=== PATIENT | female | born 1970 | race Caucasian/White ===

== ENCOUNTER 2017-03-19 23:30 | Emergency (ER) | payer OTHER ==
[~2017-03-19] VITALS: Ht 152.4 cm; Wt 69.0 kg
[~2017-03-19 23:30] MED LIST: ABILIFY10 MG PO; BACTRIM DS TAB1 EACH PO; CELEXA20 MG PO; DICLOFENAC SODI75 MG PO; FLAGYL500 MG PO; GABAPENTIN300 MG; GABAPENTIN800 MG PO; GUAIFENESIN-CO118 ML PO; IBUPROFEN600 MG PO; KEFLEX500 MG PO; LAMICTAL25 MG PO; LEVAQUIN500 MG PO; MELOXICAM15 MG PO; NORCO 5-325 TA1 EACH PO; PERCOCET 5-3251 EACH PO; PREDNISONE20 MG PO; PROVENTIL HFA6.7 GM INH; RISPERDAL2 MG; RISPERDAL3 MG PO; ULTRAM50 MG PO; ZITHROMAX250 MG PO; ZOFRAN ODT4 MG SL
== END 2017-03-20 00:09 | disposition home or self-care (01) ==
LOC: ED 23:30
DX: S61.217A Laceration without foreign body of left little finger without damage to nail, initial encounter (principal); F31.9 Bipolar disorder, unspecified; F17.200 Nicotine dependence, unspecified, uncomplicated; Z90.49 Acquired absence of other specified parts of digestive tract; Z98.51 Tubal ligation status; Z88.8 Allergy status to other drugs, medicaments and biological substances; Z91.048 Other nonmedicinal substance allergy status; W26.0XXA Contact with knife, initial encounter
CPT/HCPCS: 99282

== ENCOUNTER 2017-04-26 11:41 | Emergency (ER) | payer OTHER ==
[~2017-04-26] VITALS: Ht 152.4 cm; Wt 54.4 kg
[2017-04-26] MEDS ORDERED: ADVIL200 M1 PO (11:52)
[2017-04-26] MEDS ORDERED: KETOROLAC TROME10 MG PO (12:11)
[2017-04-26] MEDS ORDERED: BACTRIM DS TAB1 EACH PO (12:11)
== END 2017-04-26 12:15 | disposition home or self-care (01) ==
LOC: ED 11:41
DX: L02.413 Cutaneous abscess of right upper limb (principal); F31.9 Bipolar disorder, unspecified; F17.200 Nicotine dependence, unspecified, uncomplicated; Z90.49 Acquired absence of other specified parts of digestive tract; Z98.51 Tubal ligation status; Z88.8 Allergy status to other drugs, medicaments and biological substances
CPT/HCPCS: 99283

== ENCOUNTER 2017-08-22 16:06 | Emergency (ER) | payer OTHER ==
[~2017-08-22] VITALS: Ht 152.4 cm; Wt 54.4 kg
[~2017-08-22 16:06] MED LIST changes: +ADVIL200 M1 PO; +KETOROLAC TROME10 MG PO
[2017-08-22] MEDS ORDERED: NORCO 5-325 TA1 EACH PO (16:59)
== END 2017-08-22 17:08 | disposition home or self-care (01) ==
LOC: ED 16:06
DX: S60.221A Contusion of right hand, initial encounter (principal); F31.9 Bipolar disorder, unspecified; F17.200 Nicotine dependence, unspecified, uncomplicated; Z88.8 Allergy status to other drugs, medicaments and biological substances; W18.30XA Fall on same level, unspecified, initial encounter
CPT/HCPCS: 73130; 99283

== ENCOUNTER 2018-12-15 13:35 | Emergency (ER) | payer OTHER ==
[~2018-12-15] VITALS: Ht 152.4 cm; Wt 52.6 kg
[~2018-12-15 13:35] MED LIST changes: +ZYRTEC10 MG PO
--- OUTSIDE RECORDS SUMMARY | 2018-12-15 13:38 | XMS ---
PreManage Notification: ESHA NDIAYE Security Environmental Programs Manager Events 2 event(s) in the past 18 months Most recent security events: Elopement at [facility] 04/24/2018 09:24 - Other Details: PATIENT LEFT AMA BEFORE EVALUATION/TREATMENT Elopement at [facility] 02/06/2018 11:57 - Patient eloped before treatment completed. Details: LWBS CRITERIA MET - Group Notification - [facility] - Has Care Guidelines - [facility] - 2 Visits in 30 Days CARE PROVIDERS VALENTIN CURRIE Hospitalist 02/05/2018-Current PHONE: Unknown Arben has no Care Guidelines for this patient. Care History Medical/Surgical 04/24/2018 [facility] - PATIENT CANCELLED APT TO ESTABLISH WITH DR CURRIE ON 05/01/18. - PATIENT DOES NOT HAVE A PCP AND SHOULD BE REFERRED TO WALK IN CLINIC WHEN SEEN IN THE ED FOR NON EMERGENT MEDICAL NEEDS. - Patient is currently established with [facility]. If patient is seen in the ED during business hours. Please contact CHWs at [facility]. Care Recommendation: This patient has had 5 or more Emergency Department visits in the last 12 months.\T\nbsp; Patient requires education on the scope and purpose of the ED as an acute care provider not a Primary Care Provider and should not be utilized for chronic conditions.\T\nbsp; These are guidelines and the provider should exercise clinical judgment when providing care. E.Caio. VISIT COUNT (12 MO.) 4 ZENON Wilson TOTAL 4 NOTE: Visits indicate total known visits. ED/UCC VISIT TRACKING (12 MO.) 12/15/2018 13:35 [facility] [place] TYPE: Emergency COMPLAINT: - LEFT HAND SWELLING/NON INJURY 12/13/2018 10:44 [facility] [place] TYPE: Emergency COMPLAINT: - BEE STING SWELLING LEFT HAND/VOMITING 04/24/2018 04:51 [facility] [place] TYPE: Emergency COMPLAINT: - ABD PAIN/AMA HOME DIAGNOSES: - Hemorrhage of anus and rectum - Acquired absence of other specified parts of digestive tract - Allergy status to other drugs, medicaments and biological substances status - Lower abdominal pain, unspecified - Bipolar disorder, unspecified 02/04/2018 02:01 [facility] [place] TYPE: Emergency COMPLAINT: - ABCESS ON R SHOULDER DIAGNOSES: - Procedure and treatment not carried out due to patient leaving prior to being seen by health care provider INPATIENT VISIT TRACKING (12 MO.) No inpatient visits to display in this time frame [id number]
== END 2018-12-15 15:15 | disposition left against medical advice (07) ==
LOC: ED 13:35
DX: M79.89 Other specified soft tissue disorders (principal); Z53.21 Procedure and treatment not carried out due to patient leaving prior to being seen by health care provider

== ENCOUNTER 2019-09-19 05:19 | Emergency (ER) | payer OTHER ==
[~2019-09-19] VITALS: Ht 152.4 cm; Wt 52.2 kg
[2019-09-19] MEDS ORDERED: GOLYTELY SOLU4000 ML PO (07:09)
== END 2019-09-19 07:22 | disposition home or self-care (01) ==
LOC: ED 05:19
DX: K59.00 Constipation, unspecified (principal); F15.10 Other stimulant abuse, uncomplicated; F31.9 Bipolar disorder, unspecified; F17.200 Nicotine dependence, unspecified, uncomplicated; Z88.8 Allergy status to other drugs, medicaments and biological substances
CPT/HCPCS: 74018; 80053; 81001; 83690; 85025; 99284-25

== ENCOUNTER 2020-04-16 19:39 | Emergency (ER) | payer OTHER ==
[~2020-04-16] VITALS: Ht 152.4 cm; Wt 52.2 kg
[~2020-04-16 19:39] MED LIST changes: +GOLYTELY SOLU4000 ML PO
--- OUTSIDE RECORDS SUMMARY | 2020-04-16 19:42 | XMS ---
PreManage Notification: ESHA NDIAYE Security Customer Experience Strategist Events 1 event(s) in the past 18 months Most recent security events: Elopement at [facility] 12/15/2018 13:35 - Other Details: PATIENT LWBS. CRITERIA MET - Group Notification - [facility] - Has Care Guidelines CARE PROVIDERS VALENTIN CURRIE Internal Medicine 02/05/2018-Current PHONE: Unknown Arben has no Care Guidelines for this patient. Care History Medical/Surgical 12/18/2018 [facility] - EOIPA CASE MANAGEMENT REFERRAL MADE ON 12/18/18. 04/24/2018 [facility] - PATIENT CANCELLED APT TO ESTABLISH WITH DR CURRIE ON 05/01/18. - PATIENT DOES NOT HAVE A PCP AND SHOULD BE REFERRED TO WALK IN CLINIC WHEN SEEN IN THE ED FOR NON EMERGENT MEDICAL NEEDS. - Patient is currently established with [facility]. If patient is seen in the ED during business hours. Please contact CHWs at [facility]. Care Recommendation: This patient has had 5 or more Emergency Department visits in the last 12 months.\T\nbsp; Patient requires education on the scope and purpose of the ED as an acute care provider not a Primary Care Provider and should not be utilized for chronic conditions.\T\nbsp; These are guidelines and the provider should exercise clinical judgment when providing care. E.D. VISIT COUNT (12 MO.) 2 ZENON Wilson TOTAL 2 NOTE: Visits indicate total known visits. ED/UCC VISIT TRACKING (12 MO.) 04/16/2020 19:40 [facility] [place] TYPE: Emergency COMPLAINT: - BEE STING/ALLERGIC REACTION 09/19/2019 05:19 [facility] [place] TYPE: Emergency COMPLAINT: - CONSTIPATION DIAGNOSES: - Constipation, unspecified - Nicotine dependence, unspecified, uncomplicated - Bipolar disorder, unspecified - Allergy status to other drugs, medicaments and biological sub - Other stimulant abuse, uncomplicated INPATIENT VISIT TRACKING (12 MO.) No inpatient visits to display in this time frame [email or web address]
[2020-04-16] MEDS ORDERED: ULTRAM50 MG PO (20:17)
== END 2020-04-16 20:54 | disposition home or self-care (01) ==
LOC: ED 19:39
DX: T63.441A Toxic effect of venom of bees, accidental (unintentional), initial encounter (principal); F31.9 Bipolar disorder, unspecified; F17.200 Nicotine dependence, unspecified, uncomplicated; Z88.8 Allergy status to other drugs, medicaments and biological substances; Z91.041 Radiographic dye allergy status
CPT/HCPCS: 96372; 99282-25; J1200

== ENCOUNTER 2023-03-29 08:25 | Emergency (ER) | payer OTHER ==
[~2023-03-29] VITALS: Ht 152.4 cm; Wt 55.7 kg
[~2023-03-29 08:25] MED LIST changes: +ANUSOL-HC25 MG PR
--- OUTSIDE RECORDS SUMMARY | 2023-03-29 08:34 | XMS ---
PreManage Notification: ESHA NDIAYE Security Tunnel Inspector Events No recent Security Events currently on file CRITERIA MET - Group Notification CARE PROVIDERS HARI CURRIECOLM Internal Medicine 04/20/2020-Current PHONE: Unknown -, [place]- Dentist: Forming And Assembling Supervisor [facility] PHONE: [phone] JORI BALLESTEROS Physician Leather Stitcher [facility] PHONE: [phone] Arben has no Care Guidelines for this patient. E.D. VISIT COUNT (12 MO.) 2 [facility] Wilson [facility] NOTE: Visits indicate total known visits. ED/UCC VISIT TRACKING (12 MO.) 03/29/2023 08:27 [facility] [place] TYPE: Emergency COMPLAINT: - ABD PAIN, BIG BRUISE ON BACK BY KIDNEY 11/28/2022 09:15 [facility] [place] TYPE: Emergency COMPLAINT: - RECTAL BLEEDING DIAGNOSES: - Allergy status to other drugs, medicaments and biological substances - Hemorrhage of anus and rectum - Nicotine dependence, unspecified, uncomplicated - Other nonmedicinal substance allergy status - Radiographic dye allergy status 09/20/2022 09:59 [facility] [place] TYPE: Emergency DIAGNOSES: - Unspecified abdominal pain - ABD PAIN INPATIENT VISIT TRACKING (12 MO.) No inpatient visits to display in this time frame [email or web address]
[2023-03-29] MEDS ORDERED: REGLAN10 MG PO (09:25)
[2023-03-29 09:37] VITALS: BP 119/81
== END 2023-03-29 09:37 | disposition home or self-care (01) ==
LOC: ED 08:25
DX: K59.00 Constipation, unspecified (principal); F17.200 Nicotine dependence, unspecified, uncomplicated; Z91.041 Radiographic dye allergy status; Z88.8 Allergy status to other drugs, medicaments and biological substances; Z91.048 Other nonmedicinal substance allergy status
CPT/HCPCS: 74022; 99284-25

== ENCOUNTER 2023-06-25 09:20 | Emergency (ER) | payer OTHER ==
[~2023-06-25] VITALS: Ht 152.4 cm; Wt 55.3 kg
[~2023-06-25 09:20] MED LIST changes: +REGLAN10 MG PO
--- OUTSIDE RECORDS SUMMARY | 2023-06-25 09:32 | XMS ---
PreManage Notification: ESHA NDIAYE Security Layout Worker Events No recent Security Events currently on file CRITERIA MET - Group Notification CARE PROVIDERS HARI CURRIECOLM Internal Medicine 04/20/2020-Current PHONE: Unknown -, [place]- Dentist: Water And Gas Helper [facility] PHONE: [phone] JORI BALLESTEROS Physician Cataract Lens Generator [facility] PHONE: [phone] Arben has no Care Guidelines for this patient. E.D. VISIT COUNT (12 MO.) 3 [facility] Gibson [facility] NOTE: Visits indicate total known visits. ED/UCC VISIT TRACKING (12 MO.) 06/25/2023 09:20 [facility] [place] TYPE: Emergency COMPLAINT: - ABDOMINAL PAIN 03/29/2023 08:27 [facility] [place] TYPE: Emergency COMPLAINT: - ABD PAIN, BIG BRUISE ON BACK BY KIDNEY DIAGNOSES: - Allergy status to other drugs, medicaments and biological substances - Constipation, unspecified - Nicotine dependence, unspecified, uncomplicated - Other nonmedicinal substance allergy status - Radiographic dye allergy status - Unspecified abdominal pain 11/28/2022 09:15 [facility] [place] TYPE: Emergency COMPLAINT: - RECTAL BLEEDING DIAGNOSES: - Allergy status to other drugs, medicaments and biological substances - Hemorrhage of anus and rectum - Nicotine dependence, unspecified, uncomplicated - Other nonmedicinal substance allergy status - Radiographic dye allergy status 09/20/2022 09:59 [facility] [place] TYPE: Emergency DIAGNOSES: - Unspecified abdominal pain - ABD PAIN INPATIENT VISIT TRACKING (12 MO.) No inpatient visits to display in this time frame [id number]
[2023-06-25 10:00] VITALS: BP 144/70
== END 2023-06-25 10:00 | disposition left against medical advice (07) ==
LOC: ED 09:20
DX: R10.10 Upper abdominal pain, unspecified (principal); Z53.29 Procedure and treatment not carried out because of patient's decision for other reasons; F17.200 Nicotine dependence, unspecified, uncomplicated; Z88.8 Allergy status to other drugs, medicaments and biological substances; Z91.041 Radiographic dye allergy status; Z91.048 Other nonmedicinal substance allergy status
CPT/HCPCS: 36415; 80053; 83690; 84703; 85025; 99284

== ENCOUNTER 2023-06-29 07:45 | Day surgery (SDC) | payer OTHER ==
[2023-06-27 13:31] VITALS: BP 116/75
[~2023-06-29] VITALS: Ht 152.4 cm; Wt 56.8 kg
[2023-06-29 08:03] VITALS: BP 117/70
[2023-06-29 13:13] VITALS: BP 112/79
--- NOTE | 2023-06-29 13:21 | NUR ---
06/29/23 1321 Joelle Goncalves Jose D 0932- PT ARRIVES TO PACU, REACTIVE TO TACTILE STIMULUS. O2 AT 4L PER NC, LR INFUSING TO RH IV. ABD ROUND BUT SOFT. ALL MONITORS IN PLACE. PT IN SEMI ARIAS POSITION, INTERMITTENT SNORING. 0941- PT AWAKE AND PULLED O2 OFF. PT YELLING SHE NEEDS TO URINATE, PT VERY DROWSY. OFFERED A BED BENITEZ AND PT DECLINED. LET PT KNOW THAT SHE NEEDS TO WAKE UP MORE BEFORE GETTING OUT OF THE BED. PT SAYS "I'M AWAKE". KICKING OFF BLANKETS AND PULLING AT CORDS. 0945- PT CONTINUES TO ASK TO USE THE BATHROOM AND IF NOT, "I WILL PEE ALL OVER THE BED". BEDSIDE COMMODE BROUGHT OVER TO BED, THIS RN ASSISTED PT TO SIDE OF BED. PT DENIES DIZZINESS. PT STANDS BUT NOT VERY STEADY ON FEET, ASSIST TO COMMODE. 0948- PT ABLE TO GET SELF BACK INTO BED WITH STAND BY ASSISTANCE. PT HAVING FULL CONVERSATIONS WITH STAFF. 1000- VITAL SIGNS STABLE. PT WANTING TO GO HOME. ASSISTED PT TO SIDE OF BED, PT ABLE TO STAND ON OWN, DRESSING SELF. MOM CALLED FOR A RIDE HOME. 1010- PT SALINE LOCK REMOVED, TIP INTACT, DRESSING APPLIED. PT AMBULATED WITH STEADY GAIT TO WHEEL CHAIR. ALERT AND ORIENTED AT BASELINE. NO SIGNS OF DISTRESS. ALL BELONGINGS WITH PT, PT TAKEN OUT TO FAMILY CAR.
--- NOTE | 2023-06-30 06:08 | OR ---
[facility] [address] [place], [place] [address] Signed DATE OF OPERATION: 06/29/2023 SURGEON: Sam Valverde MD PREOPERATIVE DIAGNOSES: 1. Chronic abdominal pain. 2. Chronic nausea and bloating. 3. Chronic constipation. 4. Chronic intermittent rectal bleeding. 5. Diverticulosis. POSTOPERATIVE DIAGNOSES: 1. GE junction at 32 cm. 2. Small hiatal hernia (2-3 cm). PROCEDURE: Esophagogastroduodenoscopy with CLOtest and biopsies of the pyloric bulb. ESTIMATED BLOOD LOSS: None. INDICATIONS: Esha is a 52-year-old female, who I have known for a long time. She has a long history of alcohol use, opioids, marijuana, methamphetamines and cigarettes. Dr. Daly performed her laparoscopic converted to an open cholecystectomy with a liver biopsy in 2007. She had acalculous cholecystitis with alcohol-related hepatitis and moderate ascites. No cirrhosis. She has had many years of chronic abdominal pain, chronic nausea and bloating and chronic constipation with intermittent rectal bleeding. She told me nothing works including MiraLAX 3 times a day. She has been to quite a few different care providers over the years. Most recently, she went to the [facility] to see Morris Edmond, who is a nurse practitioner. She had the same complaints. She is single, lives in a duplex here in [place]. Her mom lives about 15 miles away. She has a couple of sons that live in the area. She has been to our emergency room multiple times including November and March of this year. She always has the same complaints. A CT scan in November showed a little diverticulosis and a T12 compression fracture of unknown longevity. People had brought up the idea of irritable bowel syndrome. In 2009, at the age of 39, she went for upper endoscopy. There were no varices and CLOtest was negative. She had a little gastropathy. Morris recommended she come to see me for consideration of upper and lower endoscopy. She has untreated bipolar disorder. She talks incessantly and is very difficult to break into the Electronically Signed By: SAM VALVERDE MD 06/30/23 0608 PATIENT NAME: ESHA NDIAYE OPERATIVE REPORT DATE OF : 66 REPORT #: [id number] PHYSICIAN: SAM VALVERDE MD PCP: NO PRIMARY CARE PHYSICIAN REPORT IS CONFIDENTIAL AND NOT TO BE RELEASED WITHOUT AUTHORIZATION [facility] [address] [place], [place] [address] Signed conversation. In the end, she told me she could not take a bowel prep, so she did not take the bowel prep and so she is here today for the upper endoscopy. In the office, I gave her pamphlets on upper and lower endoscopy. We had reviewed those together. There is risk including, but not limited to gas bloating, crampy abdominal pain, bleeding, perforation requiring surgery, and missed diagnosis. When we reviewed the bowel prep she understands that some patients take two days for bowel prep, she declined. She had expressed understanding and wished to proceed with upper endoscopy. Of course, given her medical history and polysubstance abuse, she clearly needs monitored anesthesia care of propofol infusion. We did send her for preoperative blood work and we see that her hemoglobin is good at 13.9 and platelets are good at 312. INR is good at 1.07. BUN is 15, creatinine 0.84. Her total bilirubin was good at 0.3 with an AST 21, ALT 26, alkaline phosphatase 104, albumin is good at 4.2. She had expressed understanding and wished to proceed. PROCEDURE IN DETAIL: Esha was taken into our endoscopy suite and placed in a supine semi-recumbent position. She was given monitored anesthesia care per our nurse color checker roving or yarn with propofol infusion. A bite block was utilized for the case. The adult gastroscope was introduced and advanced out into the third portion of the duodenum without difficulty. Her duodenum was unremarkable. She had nice clear bilious fluid in the duodenum. As before, she has a little bit of irritation in the pyloric bulb and in her stomach. We took a biopsy of the bulb as well as the antrum for pathologic review. We took an additional biopsy of the antrum for CLOtest. There were no ulcerations. Upon retroflexion of scope she has what appears to be just a very small hiatal hernia. The scope was withdrawn up through the area of the GE junction, which was compliant without stricture. She has some mild disruption to the Z-line. The Z-line measures about 32 cm from her incisors. She was moving around a little bit, but it looks like her hiatal hernia is quite small, maybe 2 or 3 cm at most. She probably does not have distal esophageal varices. Certainly not the standard three columns that we normally see. The middle and upper esophagus were unremarkable. After this, the gas was suctioned out, the colonoscope and the gastroscope removed. Esha tolerated the procedure quite well. RECOMMENDATIONS: I will see Esha back in my office in 7 to 14 days to review her results. Once again, given her history of alcohol use in hepatitis C, she would best be served by a screen cleaner. Sam Valverde MD Electronically Signed By: SAM VALVERDE MD 06/30/23 0608 PATIENT NAME: ESHA NDIAYE OPERATIVE REPORT DATE OF : 66 REPORT #: [id number] PHYSICIAN: SAM VALVERDE MD PCP: NO PRIMARY CARE PHYSICIAN REPORT IS CONFIDENTIAL AND NOT TO BE RELEASED WITHOUT AUTHORIZATION [address] [place], [place] [address] Signed ALB/MODL /[id number] cc: MD Morris Cat DNP, MEDICAL CHARGE ENTRY SPECIALIST-C Copies: SAM VALVERDE MD ~ Electronically Signed By: SAM VALVERDE MD 06/30/23 0608 PATIENT NAME: ESHA NDIAYE OPERATIVE REPORT DATE OF : 66 REPORT #: [id number] PHYSICIAN: SAM VALVERDE MD PCP: NO PRIMARY CARE PHYSICIAN REPORT IS CONFIDENTIAL AND NOT TO BE RELEASED WITHOUT AUTHORIZATION
--- NOTE | 2023-07-03 17:01 | PATH ---
[facility] [address] [place], [place] [address] Signed SPECIMEN(S): A DUODENAL BULB BIOPSY SPECIMEN(S): B ANTRUM/PYLORUS BIOPSY SPECIMEN SOURCE: A. DUODENAL BULB BIOPSY B. ANTRUM/PYLORUS BIOPSY CLINICAL HISTORY: History of abdominal pain/nausea/bloating. Post-op: Gastroduodenitis, small hiatal hernia. FINAL PATHOLOGIC DIAGNOSIS: A. Duodenal bulb biopsy: - Benign duodenal mucosa with focal mild acute and chronic inflammation consistent with slight duodenitis. - Negative for specific epithelial inflammation. B. Antrum/pylorus biopsy: - Benign gastric mucosa with slight chronic inflammation. - Negative for evidence of Helicobacter organisms on routine HE-stained sections. JVR:kitav MICROSCOPIC EXAMINATION: Histologic sections of all submitted blocks are examined by light microscopy. These findings, together with the gross examination, support the pathologic diagnosis. GROSS DESCRIPTION: A. The specimen, labeled and designated "Soto, duodenal bulb biopsy," is received in formalin and consists of one alvarado soft tissue fragment, 0.4 cm. Entirely submitted in (A1). B. The specimen, labeled and designated "Soto, antrum/pylorus biopsy," is received in formalin and consists of one alvarado soft tissue fragment, 0.8 cm. Entirely submitted in (B1). VB (under the direct supervision of a pathologist) The Gross Description was prepared using a voice recognition system. The report was reviewed for accuracy; however, sound-alike word errors, addition and/or deletions may occur. If there is any question about this report, please contact Client Services. ADDITIONAL NOTES: PATIENT NAME: ESHA NDIAYE PATHOLOGY DATE OF : 66 REPORT #: [id number] PHYSICIAN: HERMILO PATHOLOGY PCP: NO PRIMARY CARE PHYSICIAN REPORT IS CONFIDENTIAL AND NOT TO BE RELEASED WITHOUT AUTHORIZATION [facility] [address], [place] [address] Signed Immunohistochemical and/or in situ hybridization studies if performed in this case included appropriate positive controls that reacted as expected. This test was developed and its performance characteristics determined by [facility]. It has not been cleared or approved by the U.S. Food and Drug Administration. The FDA has determined that such clearance or approval is not necessary. This test is used for clinical purposes. It should not be regarded as investigational or for research. [facility] is certified under the Clinical Laboratory Improvement Amendments of 1988 (CLIA) as qualified to perform high complexity clinical laboratory testing. PERFORMING LABORATORY: Technical component was performed by [facility], [address] [place] [id number] (CLIA# [id number]). Professional interpretation was performed by [facility] - [facility], [address] [place] [id number] (CLIA#: [id number]). Diagnostician: Steve Echeverria MD Pathologist Electronically Signed 07/03/2023 Copies: ~ PATIENT NAME: ESHA NDIAYE PATHOLOGY DATE OF : 66 REPORT #: [id number] PHYSICIAN: HERMILO PATHOLOGY PCP: NO PRIMARY CARE PHYSICIAN REPORT IS CONFIDENTIAL AND NOT TO BE RELEASED WITHOUT AUTHORIZATION
== END 2023-06-29 10:10 | disposition home or self-care (01) ==
LOC: OPS 07:45 → DS 07:45 → OPS 09:00 → DS 09:00 → OPS 10:10
PROVIDERS: ATTEND Colon & Rectal Surgery
PROC: 0DB68ZX Excision of Stomach, Via Natural or Artificial Opening Endoscopic, Diagnostic (ICD-10-PCS; 2023-06-29)
PROC: 0DB98ZX Excision of Duodenum, Via Natural or Artificial Opening Endoscopic, Diagnostic (ICD-10-PCS; principal; 2023-06-29 09:00)
DX: K29.50 Unspecified chronic gastritis without bleeding (principal); K29.80 Duodenitis without bleeding; K44.9 Diaphragmatic hernia without obstruction or gangrene; K59.00 Constipation, unspecified; F19.10 Other psychoactive substance abuse, uncomplicated; K72.90 Hepatic failure, unspecified without coma; F31.9 Bipolar disorder, unspecified; H91.90 Unspecified hearing loss, unspecified ear; F17.210 Nicotine dependence, cigarettes, uncomplicated; Z88.8 Allergy status to other drugs, medicaments and biological substances; Z79.899 Other long term (current) drug therapy
CPT/HCPCS: 00731; 36415; 87077; 88305; J2001; J2405; J2704; J7121

== ENCOUNTER 2023-07-24 10:38 | Emergency (ER) | payer OTHER ==
[~2023-07-24] VITALS: Ht 152.4 cm; Wt 57.8 kg
[2023-07-24 12:05] VITALS: BP 139/82
== END 2023-07-24 11:46 | disposition other institution, planned readmission (95) ==
LOC: ED 10:38
DX: R19.00 Intra-abdominal and pelvic swelling, mass and lump, unspecified site (principal); Z53.29 Procedure and treatment not carried out because of patient's decision for other reasons; F31.9 Bipolar disorder, unspecified; F17.200 Nicotine dependence, unspecified, uncomplicated; Z88.8 Allergy status to other drugs, medicaments and biological substances; Z91.041 Radiographic dye allergy status; Z91.048 Other nonmedicinal substance allergy status
CPT/HCPCS: 76700; 99284-25

== ENCOUNTER 2024-03-02 13:35 | Emergency (ER) | payer OTHER ==
[~2024-03-02] VITALS: Ht 152.4 cm; Wt 56.0 kg
[2024-03-02] MEDS ORDERED: HYDROmorphone HCL 1 MG/ML SYR IV PRN (14:00)
[2024-03-02] MEDS ORDERED: ondansetron HCL 4 MG/2 ML VIAL IV ONE (14:00)
[2024-03-02 14:20] LABS: BASOPHILS 1.8 % (0-2); EOSINOPHILS 2.3 % (0-6); HEMATOCRIT 43.6 % (35.0-50.0); HEMOGLOBIN 14.6 g/dL (12.0-18.0); LYMPHOCYTES 33.7 % (24-44); MCH 29.8 (27-36); MCHC 33.5 g/dl (30-36); MONOCYTES 8.8 % (0-12); NEUTROPHILS 53.4 % (39-80); PLATELET COUNT 310 K/uL (140-440); RBC 4.89 M/ul (4.3-5.7); RDW 14.8 (10.5-15.0)
[2024-03-02 14:32] LABS: ALBUMIN 3.8 g/dL (3.4-5.0); ALBUMIN/GLOBULIN RATIO 0.97 (1.1-2.4); ANION GAP 12.3 (7-21); BILIRUBIN, TOTAL 0.4 ng/dL (0.2-1.0); BUN/CREATININE RATIO 14.73 (6.0-28.6); CALCIUM 9.2 mg/dL (8.5-10.1); CREATININE, SERUM 0.95 mg/dL (0.55-1.02); POTASSIUM 4.3 mmol/L (3.5-5.1); PROTEIN, TOTAL 7.7 g/dL (6.4-8.2)
[2024-03-02 15:37] LABS: BILIRUBIN, URINE NEGATIVE (negative); BLOOD/HGB, URINE SMALL (Negative); KETONE, URINE NEGATIVE (Negative); LEUK ESTERASE, URINE NEGATIVE (negative); NITRITE, URINE NEGATIVE (negative)
[2024-03-02 15:40] LABS: PREGNANCY TEST, URINE NEGATIVE (NEG)
[2024-03-02 15:47] LABS: CRYSTALS, URINE NONE SEEN (0-1+); EPITHELIAL CELLS, URINE SQUAMOUS 4+ /lpf (0-1+); RED BLOOD CELLS, URINE 0-1 /hpf (0-5); WHITE BLOOD CELLS, URINE 0-1 /HPF (0-5)
[2024-03-02 15:48] LABS: BACTERIA, URINE RARE /hpf (negative); CASTS, URINE NONE SEEN \\lpf; COLLECTION TYPE, URINE CLEAN CATCH; REFLEX CULTURE, URINE No (No)
[2024-03-02 15:50] LABS: AMPHETAMINES, URINE POSITIVE (NEGATIVE); BARBITURATES, URINE NEGATIVE (NEGATIVE); BENZODIAZEPINE, URINE NEGATIVE (NEGATIVE); BUPRENORPHINE, URINE NEGATIVE (NEGATIVE); CANNABINOID, URINE POSITIVE (NEGATIVE); COCAINE, URINE NEGATIVE (NEGATIVE); ECSTASY, URINE POSITIVE (NEGATIVE); FENTANYL, URINE NEGATIVE (NEGATIVE); METHADONE, URINE NEGATIVE (NEGATIVE); OPIATES, URINE POSITIVE (NEGATIVE); OXYCODONE, URINE NEGATIVE (NEGATIVE); PHENCYCLIDINE, URINE NEGATIVE (NEGATIVE)
[2024-03-02 16:59] VITALS: BP 128/71
== END 2024-03-02 16:59 | disposition home or self-care (01) ==
LOC: ED 13:35
PROVIDERS: Emergency Medicine
DX: R10.31 Right lower quadrant pain (principal); F17.200 Nicotine dependence, unspecified, uncomplicated; Z88.8 Allergy status to other drugs, medicaments and biological substances; Z91.041 Radiographic dye allergy status
CPT/HCPCS: 36415; 74176; 76856; 80053; 80307; 81001; 83690; 84703; 85025; 96374; 96375; 99284-25; J1170; J2405

== ENCOUNTER 2024-09-10 07:34 | Day surgery (SDC) | payer OTHER ==
[2024-09-05 14:49] VITALS: BP 137/86
[~2024-09-10] VITALS: Ht 152.4 cm; Wt 59.1 kg
[~2024-09-10 07:34] MED LIST changes: +IBLOOD GLUCOSE TEST STRIP 1 EA TEST VI PRN; +LACTATED RINGER'S 1,000 ML IV SCH; +LIDOCAINE HCL 1% 5 ML SDV INJ ONE
[2024-09-10] MEDS ORDERED: MIDAZOLAM HCL 2 MG/2 ML VIAL ONE (07:43)
[2024-09-10] MEDS ORDERED: LIDOCAINE HCL 2% 5 ML SDV ONE (08:14)
[2024-09-10] MEDS ORDERED: propofoL 200 MG/20 ML VIAL ONE ×2 (08:14)
[2024-09-10 08:19] VITALS: BP 135/71
--- NOTE | 2024-09-10 09:47 | NUR ---
09/10/24 0947 Taty Martinez 0925 PT ARRIVED IN PACU SLEEPY. ABD SOFT. 0940 RESTING. REU.
[2024-09-10 10:21] VITALS: BP 134/76
--- NOTE | 2024-09-10 12:42 | OR ---
[facility] [address] [place], [place] [address] Signed DATE OF OPERATION: 09/10/2024 SURGEON: Marva Jane MD PREOPERATIVE DIAGNOSES: 1. Untreated bipolar disease. 2. Colon screening for generalized episodic abdominal pain. POSTOPERATIVE DIAGNOSES: 1. Sigmoid diverticulosis. 2. Small polyp of rectum. 3. Internal hemorrhoids. PROCEDURE: Total colonoscopy to cecum with cold morcellation polypectomy x1. ANESTHESIA: Intravenous sedation of propofol; Memo Phipps CRNA. INDICATION: This 53-year-old white woman is a patient of ALLISON Hernadez locally. She has bipolar disease which is untreated and a history of hepatitis C, also untreated. She has had vague abdominal pain and denies prior colonoscopy in the past. She was scheduled to have colonoscopy and upper endoscopy by Dr. Sean Valverde in 2022 but refused to do a bowel prep. On that basis upper endoscopy alone was performed. She now agrees to a colonoscopy and has submitted to bowel prep. Given her rather significant manifestations of bipolar disease, propofol infusional sedation is appropriate in addition to underlying other issues. The risk of bleeding, infection, and perforation, been explained to her. She understands and wished to proceed. FINDINGS: To my surprise, the bowel prep was quite good. Indeed, it was excellent. Complete colonoscopy was undertaken to the cecum without question. She did have diverticula of the sigmoid and left colon. There was a small polyp of the upper rectum. Retroflexed view confirmed internal hemorrhoids. There was no sign of other abnormality. DESCRIPTION OF PROCEDURE: The patient was brought to the surgical endoscopy suite and placed in lateral decubitus position, given intravenous sedation to point of deep sedation. Full cardiopulmonary monitoring was maintained. Digital rectal examination was normal. Electronically Signed By: MARVA JANE MD 09/10/24 1242 PATIENT NAME: ESHA NDIAYE OPERATIVE REPORT DATE OF : 66 REPORT #: [id number] PHYSICIAN: MARVA JANE MD PCP: GINA BARNEY REPORT IS CONFIDENTIAL AND NOT TO BE RELEASED WITHOUT AUTHORIZATION [facility] [address] [place], [place] [address] Signed An Olympus video colonoscope was passed in the rectum and manipulated throughout the colon noting diverticula and surprisingly good bowel prep. Scope was ultimately passed to the cecum. The ileocecal valve and appendiceal orifice were normal. Scope was withdrawn from that point. Examination showed no sign of abnormality until the sigmoid where diverticula were once again noted. The rectum and the upper portion had a single adenomatous appearing polyp, which was excised with cold morcellation technique completely. Retroflexed view confirmed internal hemorrhoidal changes. The scope was straightened, withdrawn and removed. The patient was taken to recovery room in good condition. CONCLUDING DIAGNOSES: 1. Polyp of rectum. 2. Diverticulosis. 3. Internal hemorrhoids. PLAN: Recommend repeat colonoscopy in 7 to 10 years based on current guidelines. Rectal bleeding should be managed with hemorrhoidal banding, but in the case of her underlying psychologic issues, this would need to be done under at least sedation in the hospital setting rather than an office setting as would be the usual case. The high-fiber diet may be beneficial to prevent progression of diverticulosis and avoidance of bleeding from hemorrhoids. She will return to the ongoing care of ALLISON Hernadez. MD YOLANDA Haq/MODL /[id number] cc: ALLISON Hernadez Copies: ~ Electronically Signed By: MARVA JANE MD 09/10/24 1242 PATIENT NAME: ESHA NDIAYE OPERATIVE REPORT DATE OF : 66 REPORT #: [id number] PHYSICIAN: MARVA JANE MD PCP: GINA BARNEY REPORT IS CONFIDENTIAL AND NOT TO BE RELEASED WITHOUT AUTHORIZATION
--- NOTE | 2024-09-12 17:00 | PATH ---
[facility] [address] [facility] [place], [place] [address] Signed SPECIMEN(S): A RECTAL POLYP SPECIMEN SOURCE: A. RECTAL POLYP CLINICAL HISTORY: Rectal bleeding. Diverticulosis. Hemorrhoids. FINAL PATHOLOGIC DIAGNOSIS: Rectal polyp: - Tubular adenoma (one fragment). JVR:clv MICROSCOPIC EXAMINATION: Histologic sections of all submitted blocks are examined by light microscopy. These findings, together with the gross examination, support the pathologic diagnosis. GROSS DESCRIPTION: The specimen, labeled and designated "Soto rectal polyp," is received in formalin and consists of one alvarado soft tissue fragment, 0.2 cm. Entirely submitted in (A1). JS (under the direct supervision of a pathologist) The Gross Description was prepared using a voice recognition system. The report was reviewed for accuracy; however, sound-alike word errors, addition and/or deletions may occur. If there is any question about this report, please contact Client Services. PERFORMING LABORATORY: Technical component was performed by [facility], [address] [place] [id number] (CLIA# [id number]). Professional interpretation was performed by [facility] - [facility], [address] [place] [id number] (CLIA#: [id number]). Diagnostician: Steve Echeverria MD Pathologist Electronically Signed 09/12/2024 Copies: PATIENT NAME: ESHA NDIAYE PATHOLOGY DATE OF : 66 REPORT #: [id number] PHYSICIAN: HERMILO PATHOLOGY PCP: GINA BARNEY REPORT IS CONFIDENTIAL AND NOT TO BE RELEASED WITHOUT AUTHORIZATION [address] [address] Signed ~ PATIENT NAME: ESHA NDIAYE PATHOLOGY DATE OF : 66 REPORT #: [id number] PHYSICIAN: HERMILO NIX PCP: GINA BARNEY REPORT IS CONFIDENTIAL AND NOT TO BE RELEASED WITHOUT AUTHORIZATION
== END 2024-09-10 10:06 | disposition home or self-care (01) ==
LOC: OPS 07:34 → DS 07:34 → OPS 08:15 → DS 10:00 → OPS 10:00
PROVIDERS: ATTEND Surgery
PROC: 0DBP8ZZ Excision of Rectum, Via Natural or Artificial Opening Endoscopic (ICD-10-PCS; principal; 2024-09-10 08:15)
DX: Z12.11 Encounter for screening for malignant neoplasm of colon (principal); D12.8 Benign neoplasm of rectum; K57.30 Diverticulosis of large intestine without perforation or abscess without bleeding; K64.8 Other hemorrhoids; F31.9 Bipolar disorder, unspecified; F17.210 Nicotine dependence, cigarettes, uncomplicated; H91.13 Presbycusis, bilateral; Z87.19 Personal history of other diseases of the digestive system; Z91.041 Radiographic dye allergy status; Z91.018 Allergy to other foods; Z88.8 Allergy status to other drugs, medicaments and biological substances; Z86.19 Personal history of other infectious and parasitic diseases
CPT/HCPCS: 00811; 88305; J2003; J2250; J2704; J7121